=== PATIENT | male | born 1985 | race Caucasian/White ===

== ENCOUNTER → 2021-12-04 | Outpatient (REF) | payer OTHER ==
[2021-12-04 17:24] LABS: BASO # 0.1 10^3/uL (0.0-0.2); BASO % 0.8 % (0.0-1.0); EOS # 0.1 10^3/uL (0.0-0.5); EOS % 0.8 % (0.0-3.0); HEMATOCRIT 46.5 % (42.0-52.0); HEMOGLOBIN 15.9 g/dl (13.5-17.5); LYMPH # 1.4 10^3/uL (1.5-5.0); MEAN CORPUSCULAR HEMOGLOBIN 29.9 pg (27.0-33.0); MEAN CORPUSCULAR HGB CONC 34.2 g/dl (32.0-36.5); MEAN CORPUSCULAR VOLUME 87.4 fl (80.0-96.0); MONO # 0.5 10^3/uL (0.0-0.8); MONO % 8.7 % (2.0-8.0); NEUTROPHILS # 3.9 10^3/uL (1.5-8.5); NEUTROPHILS % 65.5 % (36.0-66.0); PLATELET COUNT, AUTOMATED 330 10^3/uL (150-450); RED BLOOD COUNT 5.32 10^6/uL (4.30-6.10)
[2021-12-04 17:32] LABS: APPEARANCE, URINE CLEAR (CLEAR); BACTERIA, URINE AUTO NEGATIVE (NEGATIVE); BILIRUBIN, URINE AUTO NEGATIVE (NEGATIVE); BLOOD, URINE BLOOD NEGATIVE (NEGATIVE); COLOR, URINE YELLOW (YELLOW); GLUCOSE, URINE (UA) AUTO NEGATIVE (NEGATIVE); KETONE, URINE AUTO TRACE mg/dL (NEGATIVE); LEUKOCYTE ESTERASE, URINE AUTO NEGATIVE (NEGATIVE); MUCUS, URINE SMALL (NEGATIVE); NITRITE, URINE AUTO NEGATIVE (NEGATIVE); PROTEIN, URINE AUTO NEGATIVE (NEGATIVE); RBC, URINE AUTO 0 /HPF (0-3); SPECIFIC GRAVITY URINE AUTO 1.015 (1.002-1.035); SQUAMOUS EPITHELIAL CELL UR AU 0 /HPF (0-6); UROBILINOGEN, URINE AUTO 0.2 mg/dL (0.0-2.0); WBC, URINE AUTO 0 /HPF (0-3)
[2021-12-04 18:06] LABS: ERYTHROCYTE SEDIMENTATION RATE 14 mm/hr (0-15)
[2021-12-04 18:19] LABS: C REACTIVE PROTEIN QUANTITATIV 0.96 MG/DL (0.00-0.30); COMPLEMENT C3 141 MG/DL (90-180); COMPLEMENT C4 29 MG/DL (10-40); IRON (FE) 48 UG/DL (65-175); MAGNESIUM LEVEL 2.4 MG/DL (1.8-2.4); TOTAL PROTEIN 8.3 GM/DL (6.4-8.2); TOTAL PROTEIN,RANDOM URINE 14.9 MG/DL (0.0-12.0)
[2021-12-04 18:52] LABS: TOTAL 25(OH) VITAMIN D 21.2 NG/ML (30.0-100.0)
[2021-12-04 18:53] LABS: HEPATITIS B SURFACE ANTIBODY POSITIVE (POSITIVE); VITAMIN B12 LEVEL 438 PG/ML (247-911)
[2021-12-04 19:04] LABS: HEPATITIS B SURFACE ANTIGEN NEGATIVE (NEGATIVE)
[2021-12-04 19:32] LABS: HEPATITIS C VIRUS ABY INDEX < 0.0 INDEX (<0.8)
[2021-12-09 10:37] LABS: ALBUMIN 5.08 GM/DL (3.29-5.55); ALBUMIN % 61.2 % (55.8-66.1); ALPHA-1-GLOBULIN % 4.2 % (2.9-4.9); ALPHA-1-GLOBULINS 0.35 GM/DL (0.17-0.41); ALPHA-2-GLOBULINS 0.71 GM/DL (0.42-0.99); ALPHA-2-GLOBULINS % 8.5 % (7.1-11.8); BETA-1-GLOBULINS 0.52 GM/DL (0.28-0.60); BETA-1-GLOBULINS % 6.3 % (4.7-7.2); BETA-2-GLOBULINS % 4.3 % (3.2-6.5); GAMMA GLOBULIN % 15.5 % (11.1-18.8)
[2021-12-09 10:38] LABS: BETA-2-GLOBULINS 0.36 GM/DL (0.19-0.55); GAMMA GLOBULINS 1.29 GM/DL (0.65-1.58)
== END ==
LOC: M SFHCRHEU 15:23
PROVIDERS: ATTEND Internal Medicine
DX: R76.8 Other specified abnormal immunological findings in serum (principal); R61 Generalized hyperhidrosis; R53.82 Chronic fatigue, unspecified; R21 Rash and other nonspecific skin eruption; M25.50 Pain in unspecified joint; Z11.59 Encounter for screening for other viral diseases